=== PATIENT | female | born 1955 | race Caucasian/White ===

== ENCOUNTER → 2021-04-30 | Outpatient (CLI) | payer MEDICARE ==
[2016-07-13 11:00] VITALS: BP 126/57
[~2021-04-30] MED LIST: ASPI-482 PO; ATOR20TA PO; CELE200C PO; LEVO100T5 PO; LISI1TAB23 PO; MULT-650 PO; OMEP20TA63 PO; PROAIR RESPICL90 MCG IH
--- NOTE | 2021-05-01 08:14 | RAD ---
CT CHEST AND ABDOMEN WITHOUT CONTRAST History: Chest pain, abdominal pain. Comparison: None. Technique: CT of the chest and abdomen. Findings: The heart is normal sized. No pericardial effusion. Mild coronary artery calcification. Normal calibe r aorta without significant atherosclerotic calcification. Thyroid is unremarkable. No adenopathy. Small hiatal hernia. Thoracic esophagus is unremarkable. Normal airways. Clear lungs. No pleural effusion or thickening. Mild diffuse hypoattenuation of the liver. No focal masses. Status post cholecystectomy without bilia ry ductal dilatation. The pancreas, spleen and adrenal glands are normal. Unremarkable kidneys and pr oximal ureters. No hydronephrosis or nephrolithiasis. Small hiatal hernia. Stomach is otherwise unremarkable. Visualized small bowel is normal in caliber. No colonic wall thickening in the visualized portions of the ascending transverse and descending colo n. No significant diverticular disease. No pericolonic inflammatory changes. No free fluid in the upp er abdomen. Minimal aortic atherosclerotic calcification. No abdominal adenopathy. No aggressive osseous lytic or sclerotic lesion. The soft tissues are unremarkable. Impression: 1. No acute findings in the chest and abdomen. 2. Mild hepatic steatosis. 3. Small hiatal hernia. ------ Exposure: One or more of the following individualized dose reduction techniques were utilized for thi s examination: 1. Automated exposure control 2. Adjustment of the mA and/or kV according to patient size 3. Use of iterative reconstruction technique. Electronically signed by: Juan Jose Sanders MD (05/01/2021 8:12 AM) [facility]
== END ==
LOC: CT 14:17
PROVIDERS: ATTEND Family Medicine
DX: K76.0 Fatty (change of) liver, not elsewhere classified (principal); K44.9 Diaphragmatic hernia without obstruction or gangrene; R14.0 Abdominal distension (gaseous); I70.0 Atherosclerosis of aorta; I25.10 Atherosclerotic heart disease of native coronary artery without angina pectoris; Z90.49 Acquired absence of other specified parts of digestive tract
CPT/HCPCS: 71250; 74150

== ENCOUNTER → 2021-07-17 | Outpatient (CLI) | payer MEDICARE ==
[2016-07-13 11:00] VITALS: BP 126/57
--- NOTE | 2021-07-17 16:52 | KCIC ---
INDICATION: Screening for osteopenia/osteoporosis. Postmenopausal evaluation COMPARISON: None. TECHNIQUE: Bone densitometry was performed through the lumbar spine and proximal femur. IMPRESSION: Lumbar Spine: BMD: 1.2 T-Score: 1.5 Range: Normal Proximal Femur: BMD: 0.89 T-Score: -0.4 Range: Normal World Health Organization Criteria for Bone Density: T-Score: > -1.0: Normal Range < -1.0 to -2.5: Osteopenic Range < -2.5: Osteoporotic Range Electronically signed by: Anant Covarrubias MD (07/17/2021 4:50 PM) [id number]
--- NOTE | 2021-07-19 11:53 | KCIC ---
Bilateral digital screening 2-D and 3-D (digital breast tomosynthesis) mammogram: Reason for examination: Routine screening. Comparison: None available. The patient states her last mammograms were performed over 10 years ago. Interpretation was made with the benefit of CAD. FINDINGS: Breast density: Category A. Breast tissue is almost entirely fatty. No suspicious breast mass, malignant appearing calcifications, or architectural distortion is seen. T here are postreduction changes with 2 oil cysts right breast, which are a benign finding. IMPRESSION: No evidence of malignancy. Assessment: BI-RADS 2. Benign findings. Recommendation: Routine screening mammograms. This patient's information has been entered into a reminder system for the patient to be notified wit h the results of her examination by mail and a target date for the next mammogram. A reminder letter will be generated. Electronically signed by: Eli Booth MD (07/19/2021 11:51 AM) [id number]
== END ==
LOC: KCIC MAMMO 14:58
PROVIDERS: ATTEND Family Medicine
DX: Z12.31 Encounter for screening mammogram for malignant neoplasm of breast (principal); M81.0 Age-related osteoporosis without current pathological fracture; Z78.0 Asymptomatic menopausal state
CPT/HCPCS: 77063; 77067; 77080

== ENCOUNTER → 2022-02-25 | Outpatient (CLI) | payer MEDICARE ==
[2016-07-13 11:00] VITALS: BP 126/57
[~2022-02-25] MED LIST changes: -LISI1TAB23 PO; +LISI1TAB35 PO
--- NOTE | 2022-02-25 15:35 | KCIC ---
EXAM: Abdomen sonogram. HISTORY: Pain. TECHNIQUE: Sonographic imaging of the abdomen was performed. COMPARISON: None. FINDINGS: The liver is enlarged. There is hepatic steatosis. No hepatic lesion is seen. The gallbladd er is surgically absent. The common bile duct is obscured. The kidneys are normal in size. There is n o hydronephrosis. The spleen is normal in size. The pancreas, aorta and inferior vena cava are partia lly obscured due to body habitus. IMPRESSION: 1. Hepatomegaly and hepatic steatosis. 2. Cholecystectomy. 3. Obscured midline structures due to body habitus. Electronically signed by: Yany Lord MD (02/25/2022 3:32 PM) [id number]
== END ==
LOC: KCIC 13:35
PROVIDERS: ATTEND Family Medicine
DX: R16.0 Hepatomegaly, not elsewhere classified (principal); K76.0 Fatty (change of) liver, not elsewhere classified; Z90.49 Acquired absence of other specified parts of digestive tract
CPT/HCPCS: 76700